=== PATIENT | female | born 1955 | race Caucasian/White ===

== ENCOUNTER 2016-12-16 11:33 | Emergency (ER) | payer BC ==
[2016-12-16 11:38] VITALS: BMI 28.5
--- NOTE | 2016-12-16 12:18 | DR.GENAD ---
HPI - PCP Primary Care Physician: none - HPI Comment HPI Comment: HISTORY BELOW. - Complaint/Symptoms Chief Complaint Doctors Comments: COUGH, CONGESTION AND LEFT EAR PAIN FOR 3 DAYS. WORSE TODAY. WENT APPLE CARE, BP LOW AND TOLD TO COME TO ED. IN ED, BP 84/ 65. SHE TOOK HER ANTI HYPERTENSIVE MED TO. SHE IS SLIGHTLY DIZZY. Chief Complaint:: pt has been coughing and her ear hurting for three days - Nurses notes reviewed Nurses Notes Review: Yes - Source History Provided: Patient - Mode of Arrival Mode of Arrival: Ambulatory - Timing Onset of Chief Complaint: 12/14/16 Came on: Suddenly - Duration Duration: Constant Duration: Days - Severity Severity: Moderate PMH - PMH Past Medical History: Yes Past Medical History: Hypertension Past Surgical History: Yes Surgical History: Hysterectomy - Family History History of Family Medical Conditions: No - Social History Does patient currently use any type of tobacco product: No Have you used tobacco products in the last 12 months: No Type of Tobacco Use: None Does any household member use tobacco: No Alcohol Use: None Do you use any recreational Drugs:: No Lives With: Spouse Lives Where: Home - infectious screening In the last 2 months have you had wt loss of >10#?: NO Have you had fever, night sweats or hemotysis?: No Have you traveled outside the country in the last 6 months?: No Isolation: Standard ROS - Review of Systems Constitutional: Weakness, Fatigue. negative: Chills, Fever Eyes: No Symptoms Reported. negative: Eye Pain, Discharge ENTM: Ear Pain (LT EAR PAIN), Nose Congestion. negative: Nose Discharge, Throat Pain Respiratoy: Productive Cough, Short of Breath. negative: Wheezing, Hemoptysis Cardiovascular: Other (HYPOTENSION). negative: Chest Pain Gastrointestinal/Abdominal: No Symptoms Reported Genitourinary: No Symptoms Reported Neurological: No Symptoms Reported Musculoskeletal: No Symptoms Reported Integumentary: No Symptoms Reported Hematologic/Lymphatic: No Symptoms Reported Endocrine: No Symptoms Reported All Other Systems: Reviewed and Negative PE - Vital Signs Vitals: Temperature 97.5 F Pulse Rate [Right Brachial] 88 Pulse Rate [Left Brachial] 112 Pulse Rate 105 Respiratory Rate 18 Blood Pressure [Right Arm] 87/56 Blood Pressure [Left Arm] 82/60 Blood Pressure 84/65 O2 Sat by Pulse Oximetry 96 - General Limitations: No Limitations General Appearance: Alert - Head Head Exam: Normal Inspection - Eyes Eye exam: Normal Appearance - ENT ENT Exam: Normal External Ear Exam External Ear Exam: Normal External Inspection TM/Canal Exam: Left Erythema, Left Canal Tenderness Nose Exam: Normal Nose Exam Mouth Exam: Normal Inspection Throat Exam: Normal Inspection - Neck Neck Exam: Normal Inspection - Chest Chest Inspection: Symmetric Chest Wall Rise - Respiratory Respiratory Exam: Normal Lung Sounds Bilat Respiratory Exam: Bilateral Wheezing, Bilateral Rhonchi, Lower Wheezing, Lower Rhonchi - Cardiovascular Cardiovascular Exam: Regular Rate, Normal Rhythm, Normal Heart Sounds - Abdominal Exam Abdominal Exam: Normal Bowel Sounds, Soft. negative: Tenderness - Extremities Extremities Exam: Normal Inspection - Back Back Exam: Normal Inspection - Neurologic Neurological Exam: Alert, Oriented X3 - Psychiatric Psychiatric Exam: Normal Affect, Normal Mood - Skin Skin Exam: Pallor, Other (HYPOTENSION) MDM - Additional Information Additional Information Obtained From: Family - Differential Diagnosis Differential Diagnosis: HYPOTENSION, PNEUMONIA, BRONCHITIS, LT OTITIS MEDIA Course - Treatment Treatment: SEE ORDERS. PATIENT HYPOTENSIVE WHEN NS IS DECREASE. SHE WISH TO GO HOME . D/C AMA. GAVE PATIENT MED FOR EAR INFECTION AND BRONCHITIS. SHE WAS TOLD TO COME BACK IF SHE CHANGE HER MIND. - Reevaluation 1st: Improved (FLUID CHANLLENGE IMPROVE BP. WHEN FLUID IS WEAN OFF, BP DECREASES.) - Consultation Consultation Comments: DISCUSS PATIENT WITH DR. HANCOCK. HE WILL ADMIT PATIENT . HOWEVER PATIENT DID NOT WISH TO BE ADMITTED. - Education/Counseling Education/Counseling: Patient, Family, Education Educated On: Treatment, Diagnosis ROR - Labs Reviewed Laboratory Results Reviewed?: Yes Result Diagrams: 12/16/16 12:48 12/16/16 12:48 Laboratory: WBC 12.6 X10^3/uL (3.6-10.0) H 12/16/16 12:48 RBC 4.30 X10^6/uL (3.5-5.4) 12/16/16 12:48 Hgb 13.7 g/dL (12.0-16.0) 12/16/16 12:48 Hct 39.6 % (36.0-47.0) 12/16/16 12:48 MCV 92.1 fL (80.0-100.0) 12/16/16 12:48 MCH 32.0 pg (27.0-34.0) 12/16/16 12:48 MCHC 34.7 g/dL (33.0-35.0) 12/16/16 12:48 RDW 12.6 % (11.6-16.5) 12/16/16 12:48 Plt Count 317 X10^3/uL (150.0-450.0) 12/16/16 12:48 MPV 8.2 fL (7.4-11.0) 12/16/16 12:48 Neut % 74.2 % (42.0-75.0) 12/16/16 12:48 Lymph % 12.7 % (21.0-51.0) L 12/16/16 12:48 [place] % 10.9 % (0.0-13.0) 12/16/16 12:48 Eos % 1.7 % (0.9-2.9) 12/16/16 12:48 Baso % 0.5 % (0.2-1.0) 12/16/16 12:48 Neut # 9.4 x10^3/uL (2.2-4.8) H 12/16/16 12:48 Lymph # 1.6 X10^3/uL (1.3-2.9) 12/16/16 12:48 [place] # 1.4 x10^3/uL (0.3-0.8) H 12/16/16 12:48 Eos # 0.2 x10^3/uL (0.0-0.2) 12/16/16 12:48 Baso # 0.1 X10^3/uL (0.0-0.1) 12/16/16 12:48 Absolute Nucleated RBC 0.0 /100WBC 12/16/16 12:48 Sodium 141 mmol/L (136-145) 12/16/16 12:48 Corrected Sodium TNP 12/16/16 12:48 Potassium 3.6 mmol/L (3.5-5.1) 12/16/16 12:48 Chloride 102 mmol/L (98-107) 12/16/16 12:48 Carbon Dioxide 28.2 mmol/L (21-32) 12/16/16 12:48 BUN 22 mg/dL (7-18) H 12/16/16 12:48 Creatinine 1.42 mg/dL (0.55-1.02) H 12/16/16 12:48 Est GFR (MDRD) Af Amer 48 (>60) L 12/16/16 12:48 Est GFR (MDRD) Non-Af 40 (>60) L 12/16/16 12:48 Glucose 101 mg/dL (65-99) H 12/16/16 12:48 Calcium 9.3 mg/dL (8.5-10.1) 12/16/16 12:48 Corrected Calcium TNP 12/16/16 12:48 Total Bilirubin 0.70 mg/dL (0.2-1.0) 12/16/16 12:48 AST 11 Units/L (15-37) L 12/16/16 12:48 ALT 21 Units/L (12-78) 12/16/16 12:48 Alkaline Phosphatase 64 Units/L (46-116) 12/16/16 12:48 Creatine Kinase 108 Units/L (26-192) 12/16/16 12:48 CK-MB (CK-2) < 1.0 ng/mL (0-4.0) 12/16/16 12:48 CK/CKMB % Calc 0.9 % (<4) 12/16/16 12:48 Troponin I < 0.02 ng/mL (0-1.5) 12/16/16 12:48 Total Protein 8.0 g/dL (6.4-8.2) 12/16/16 12:48 Albumin 3.8 g/dL (3.4-5.0) 12/16/16 12:48 Globulin 4.2 g/dL (2.5-4.5) 12/16/16 12:48 Albumin/Globulin Ratio 0.9 Ratio (1.1-2.1) L 12/16/16 12:48 - XRAY XRAY Interpreted by: Radiologist XRAY Findings: REPORT DISCUSS WITH PATIENT AND HER . - Diagnosis Discharge Problem: Bronchitis Hypotension Qualifiers: Hypotension type: unspecified hypotension type Qualified Code(s): I95.9 - Hypotension, unspecified Left otitis media Qualifiers: Otitis media type: in diseases classified elsewhere Qualified Code(s): H67.2 - Otitis media in diseases classified elsewhere, left ear - Discharge Plan Disposition: 07 AGAINST MEDICAL ADVICE Condition: Stable Prescriptions: Amoxicillin [Amoxil 875 mg] 875 mg PO BID #20 tab Benzonatate [TESSALON PERLES *] 200 mg PO TID PRN #20 cap PRN Reason: Cough - Follow ups/Referrals Follow ups/Referrals: [facility],None [Primary Care Provider] - 3 days - Instructions Instructions: Hypotension, Otitis Media, Adult, Acute Bronchitis, [id number] Additional Instructions: RETURN TO ED WISH. YOU ARE DISCHARGE HOME AGAINST MEDICAL ADVICE BECAUSE YOUR BLOOD PRESSURE IS LOW.. HOLD YOU BLOOD PRESSURE MEDICATION.
[2016-12-16] MEDS ORDERED: NS 1000 ML 1,000 ML IV ONE (12:33)
[2016-12-16] MEDS ORDERED: NS 1000 ML 1,000 ML ONE (12:38)
--- NOTE | 2016-12-16 13:18 | RAD ---
HISTORY: Cough Study: Chest one view Comparison: None Findings: The trachea is midline. The cardiac silhouette is unremarkable. The lungs are hypoinflated but darren e of acute infiltrates.. The bony thorax is unremarkable. IMPRESSION: 1. No acute cardiopulmonary disease. Reported By:
[2016-12-16 13:25] LABS: BASOPHILS # (AUTO) 0.1 X10^3/uL (0.0-0.1); BASOPHILS % (AUTO) 0.5 % (0.2-1.0); EOSINOPHILS # (AUTO) 0.2 x10^3/uL (0.0-0.2); EOSINOPHILS % (AUTO) 1.7 % (0.9-2.9); HEMATOCRIT 39.6 % (36.0-47.0); HEMOGLOBIN 13.7 g/dL (12.0-16.0); LYMPHOCYTES # (AUTO) 1.6 X10^3/uL (1.3-2.9); LYMPHOCYTES % (AUTO) 12.7 % (21.0-51.0); MEAN CORPUSCULAR HGB CONC 34.7 g/dL (33.0-35.0); MEAN CORPUSCULAR VOLUME 92.1 fL (80.0-100.0); MEAN PLATELET VOLUME 8.2 fL (7.4-11.0); MONOCYTES # (AUTO) 1.4 x10^3/uL (0.3-0.8); MONOCYTES % (AUTO) 10.9 % (0.0-13.0); NEUTROPHILS # (AUTO) 9.4 x10^3/uL (2.2-4.8); NEUTROPHILS % (AUTO) 74.2 % (42.0-75.0); PLATELET COUNT 317 X10^3/uL (150.0-450.0); RED CELL DISTRIBUTION WIDTH 12.6 % (11.6-16.5); WHITE BLOOD COUNT 12.6 X10^3/uL (3.6-10.0)
[2016-12-16] MEDS ORDERED: ROCEPHIN VIAL 1 GM 1 GM in NS 50 ML IV + SPIKE MINIBAG* 50 ML IV ONE (13:26)
[2016-12-16] MEDS ORDERED: NS 50 ML IV + SPIKE MINIBAG* 50 ML IV ONE (13:33)
[2016-12-16] MEDS ORDERED: ROCEPHIN VIAL 1 GM ONE (13:33)
[2016-12-16 13:40] LABS: BLOOD UREA NITROGEN 22 mg/dL (7-18); CALCIUM 9.3 mg/dL (8.5-10.1); CARBON DIOXIDE 28.2 mmol/L (21-32); CHLORIDE 102 mmol/L (98-107); CREATININE 1.42 mg/dL (0.55-1.02); GLUCOSE 101 mg/dL (65-99); SODIUM 141 mmol/L (136-145); TROPONIN I < 0.02 ng/mL (0-1.5); eGFR BLACK RACES 48 (>60); eGFR NON BLACK RACES 40 (>60)
[2016-12-16 13:44] LABS: ALANINE AMINOTRANSFERASE 21 Units/L (12-78); ALBUMIN 3.8 g/dL (3.4-5.0); ALKALINE PHOSPHATASE 64 Units/L (46-116); ASPARTATE AMINO TRANSFERASE 11 Units/L (15-37); CKMB % 0.9 % (<4); CREATINE KINASE 108 Units/L (26-192); CREATINE KINASE MB < 1.0 ng/mL (0-4.0)
[2016-12-16 13:57] VITALS: BP 87/56
== END 2016-12-16 15:07 | disposition left against medical advice (07) ==
LOC: ER 11:55
DX: J40 Bronchitis, not specified as acute or chronic (principal); I95.9 Hypotension, unspecified; H67.2 Otitis media in diseases classified elsewhere, left ear
CPT/HCPCS: 36415; 71010; 80053; 82550; 82553; 84484; 85025; 87040; 93005; 93010; 96365; 96374; 99282; 99283; A4222; J0696